=== PATIENT | female | born 1985 | race Caucasian/White ===

== ENCOUNTER 2017-06-13 18:12 | Emergency (ER) | payer SELFPAY ==
[~2017-06-13] VITALS: Ht 162.6 cm; Wt 60.0 kg
[2017-06-13 18:15] VITALS: BP 133/67; PULSE 67; RESP 16; TEMP 99; O2SAT 100
--- NOTE | 2017-06-13 19:23 | PD ---
HPI Chief Complaint: Injury Time Seen by Provider: 18:56 Travel History International Travel<30 days: No Contact w/Intl Traveler<30days: No Traveled to known affect area: No History of Present Illness HPI Patient is a 32-year-old female presents to emergency room complaints of right hand digit #2 pain. Reports that prior to coming to the ER, she accidently slammed a door on her finger. patient is right hand dominant. Patient with complaints of right hand pointer digit #2. PFSH Past Medical History Medical History: Denies Significant Hx ?: Not LMP: 05/26/17 Past Surgical History Surgical History: No Previous Surgery Social History Alcohol Use: No Tobacco Use: No Substance Use: No Allergies-Medications (Allergen,Severity, Reaction): Coded Allergies: aspirin (Verified Allergy, Unknown, 06/13/17) Reported Meds & Prescriptions Reported Meds & Active Scripts Active No Active Prescriptions or Reported Medications Review of Systems General / Constitutional: No: Fever Eyes: No: Visual changes HENT: No: Headaches Cardiovascular: No: Chest Pain or Discomfort Respiratory: No: Shortness of Breath Gastrointestinal: No: Abdominal Pain Genitourinary: No: Dysuria Musculoskeletal: Positive: Pain (right hand digit #2 pain) Skin: No Rash Neurologic: No: Weakness Psychiatric: No: Depression Endocrine: No: Polydipsia Hematologic/Lymphatic: No: Easy Bruising Physical Exam Narrative GENERAL: Well-nourished, well-developed patient. SKIN: Focused skin assessment warm/dry. HEAD: Normocephalic. EYES: No scleral icterus. No injection or drainage. NECK: Supple, trachea midline. No JVD or lymphadenopathy. CARDIOVASCULAR: Regular rate and rhythm without murmurs, gallops, or rubs. RESPIRATORY: Breath sounds equal bilaterally. No accessory muscle use. GASTROINTESTINAL: Abdomen soft, non-tender, nondistended. MUSCULOSKELETAL: No cyanosis, or edema. RUE: patient with pain with palpation of right hand: tip of digit #2, normal rom to all fingers, neurovascularly intact, pulses intact LUE: normal exam Data Data Last Documented VS Vital Signs Date Time Temp Pulse Resp B/P (MAP) Pulse Ox O2 Delivery O2 Flow Rate FiO2 06/13/17 18:15 99.0 67 16 133/67 (89) 100 Room Air Orders Orders Hand, Complete ([id number]) (06/13/17 ) Acetaminophen (Tylenol) (06/13/17 19:30) MDM Medical Decision Making Medical Screen Exam Complete: Yes Emergency Medical Condition: Yes Medical Record Reviewed: Yes Interpretation(s) Vital Signs Date Time Temp Pulse Resp B/P (MAP) Pulse Ox O2 Delivery O2 Flow Rate FiO2 06/13/17 18:15 99.0 67 16 133/67 (89) 100 Room Air Differential Diagnosis finger fx/sprain Narrative Course xray of right hand ordered. acetaminophen ordered for pain. patient with no obvious open deformities, pulses intact, neurovascularly intact X-ray of the right hand shows no definite fractures. Patient was given a copy of her xray report. She will follow up with her pcp and will return to ER as needed. Diagnosis Primary Impression: Finger contusion Qualified Codes: S60.021A - Contusion of right index finger without damage to nail, initial encounter Patient Instructions: General Instructions Additional Instructions: Please follow up with your primary care doctor and return to ER as needed Scripts No Active Prescriptions or Reported Meds Disposition: 01 DISCHARGE HOME Condition: Stable Radha Luna DO Jun 13, 2017 19:23
[2017-06-13] MEDS ORDERED: ACETAMINOPHEN 325 MG TAB PO ONE (19:30)
--- NOTE | 2017-06-13 19:44 | RADRPT ---
EXAM DATE/TIME: 06/13/2017 19:16 [facility] COMPARISON: No previous studies available for comparison. INDICATIONS : Slammed hand in car door. MEDICAL HISTORY : None. SURGICAL HISTORY : None. ENCOUNTER: Initial ACUITY: 1 day PAIN SCORE: 7/10 LOCATION: Right Second IPJ. FINDINGS: No definite fractures, or dislocations are identified. No definite lytic or sclerotic lesion is seen . The joint spaces are well maintained. CONCLUSION: Unremarkable study. Leslie Hill MD on June 13, 2017 at 19:42 Board Certified Radiologist. This report was verified electronically.
== END 2017-06-13 20:02 | disposition home or self-care (01) ==
LOC: NEPD 18:12
DX: S60.021A Contusion of right index finger without damage to nail, initial encounter (principal); W23.0XXA Caught, crushed, jammed, or pinched between moving objects, initial encounter
CPT/HCPCS: 73130; 99283